=== PATIENT | male | born 1995 | race Caucasian/White ===

== ENCOUNTER → 2019-04-01 | Outpatient (CLI) | payer OTHER | LOC: RAD 08:07 | DX: M79.672 Pain in left foot (principal) ==

== ENCOUNTER → 2019-05-15 | Outpatient (CLI) | payer OTHER | LOC: RAD 06:50 | DX: M71.872 Other specified bursopathies, left ankle and foot (principal) ==

== ENCOUNTER → 2021-01-27 | Outpatient (CLI) | payer OTHER | LOC: RAD 11:56 | DX: M25.521 Pain in right elbow (principal) ==

== ENCOUNTER 2021-02-09 09:02 | Outpatient (RCR) | payer OTHER | END 2021-02-19 17:00 | disposition still patient (30) | LOC: PT 09:02 | DX: M25.521 Pain in right elbow (principal) ==

== ENCOUNTER 2021-04-02 07:59 | Emergency (ER) | payer OTHER ==
[~2021-04-02] VITALS: Ht 175.3 cm; Wt 76.5 kg
[2021-04-02 08:41] LABS: BASO # 0.02 K/mm3 (0.02-0.10); EOS % 2.6 % (0.0-4.0); HEMATOCRIT 47.5 % (42.0-52.0); HEMOGLOBIN 15.4 g/dL (13.5-18.0); LYMPH# 1.97 K/mm3 (1.50-4.00); MEAN CELL VOLUME 89 fl (78-100); MEAN CORPUSCULAR HEMOGLOBIN 29 pg (27-31); MEAN CORPUSCULAR HGB CONC 32 g/dL (33-37); MEAN PLATELET VOLUME 10.1 fl (7.4-10.4); MONO # 0.61 K/mm3 (0.20-0.80); NEU # 4.72 K/mm3 (1.40-6.50); PLATELET COUNT 280 K/mm3 (130-400); RED BLOOD COUNT 5.33 M/mm3 (4.20-5.60); RED CELL DISTRIBUTION WIDTH 12.3 % (11.5-14.5); WHITE BLOOD COUNT 7.6 K/mm3 (4.8-10.8)
[2021-04-02 08:50] LABS: ALBUMIN 4.3 g/dL (3.5-5.0); POTASSIUM 3.8 mmol/L (3.5-5.1); SODIUM 140 mmol/L (136-145)
[2021-04-02 08:51] LABS: CALCIUM 9.6 mg/dL (8.3-10.5)
[2021-04-02 08:52] LABS: GLUCOSE 96 mg/dL (75-110); TOTAL PROTEIN 7.2 g/dL (6.4-8.3)
[2021-04-02 08:53] LABS: CARBON DIOXIDE 24 mmol/L (22-29)
[2021-04-02 08:54] LABS: TOTAL BILIRUBIN 0.6 mg/dL (0.2-1.2)
[2021-04-02 08:58] LABS: AST-SGOT 22 U/L (5-34)
[2021-04-02 08:59] LABS: ALT/SGPT 45 U/L (0-55)
[2021-04-02 09:13] LABS: TROPONIN-I < 0.03 ng/mL (<0.030)
[2021-04-02] MEDS ORDERED: IBU600 MG PO (09:41)
[2021-04-02 09:56] VITALS: BP 128/71
== END 2021-04-02 09:56 | disposition home or self-care (01) ==
LOC: ED 07:59
PROVIDERS: Nurse Practitioner
DX: R09.1 Pleurisy (principal)
CPT/HCPCS: J1885

== ENCOUNTER 2021-12-10 22:01 | Emergency (ER) | payer SELFPAY ==
[~2021-12-10] VITALS: Ht 175.3 cm; Wt 77.4 kg
[~2021-12-10 22:01] MED LIST: IBU600 MG PO
[2021-12-10 23:42] LABS: BASO # 0.02 K/mm3 (0.02-0.10); EOS # 0.15 K/mm3 (0.04-0.40); EOS % 1.2 % (0.0-4.0); HEMATOCRIT 46.9 % (42.0-52.0); HEMOGLOBIN 15.8 g/dL (13.5-18.0); LYMPH# 2.59 K/mm3 (1.50-4.00); MEAN CELL VOLUME 86 fl (78-100); MEAN CORPUSCULAR HEMOGLOBIN 29 pg (27-31); MEAN CORPUSCULAR HGB CONC 34 g/dL (33-37); MEAN PLATELET VOLUME 11.5 fl (7.4-10.4); MONO # 0.87 K/mm3 (0.20-0.80); NEU # 8.55 K/mm3 (1.40-6.50); PLATELET COUNT 268 K/mm3 (130-400); RED BLOOD COUNT 5.45 M/mm3 (4.20-5.60); RED CELL DISTRIBUTION WIDTH 12.1 % (11.5-14.5); WHITE BLOOD COUNT 12.2 K/mm3 (4.8-10.8)
[2021-12-10 23:47] LABS: POTASSIUM 3.9 mmol/L (3.5-5.1); SODIUM 137 mmol/L (136-145)
[2021-12-10 23:49] LABS: GLUCOSE 94 mg/dL (75-110)
[2021-12-10 23:50] LABS: CARBON DIOXIDE 23 mmol/L (22-29)
[2021-12-11 00:04] LABS: TROPONIN-I < 0.030 ng/mL (<0.030)
[2021-12-11 00:31] VITALS: BP 110/60
== END 2021-12-11 00:30 | disposition home or self-care (01) ==
LOC: ED 22:01
PROVIDERS: Family Medicine
DX: M94.0 Chondrocostal junction syndrome [Tietze] (principal); Z28.310 Unvaccinated for COVID-19
CPT/HCPCS: J1885

== ENCOUNTER → 2023-05-29 | Outpatient (CLI) | payer OTHER ==
[~2023-05-29] MED LIST changes: +CYCLOBENZAPRINE10 M1 PO; +KETOROLAC10 MG PO
== END ==
LOC: RAD 17:41
DX: M79.672 Pain in left foot (principal)

== ENCOUNTER 2024-05-03 19:20 | Emergency (ER) | payer BC ==
[~2024-05-03] VITALS: Ht 175.3 cm; Wt 81.8 kg
[2024-05-03] MEDS ORDERED: CETIRIZINE HCL10 MG PO (19:46)
[2024-05-03] MEDS ORDERED: ATOMOXETINE HCL40 MG PO (19:47)
[2024-05-03] MEDS ORDERED: Ketorolac 30 MG/ML VIAL IM ONE (21:00)
[2024-05-03] MEDS ORDERED: MEDROL DOSEPAK4 MG PO (21:08)
[2024-05-03 22:04] VITALS: BP 121/78
== END 2024-05-03 22:06 | disposition home or self-care (01) ==
LOC: ED 19:20
DX: M50.30 Other cervical disc degeneration, unspecified cervical region (principal)
CPT/HCPCS: J1885